=== PATIENT | female | born 1995 | race African-American/Black ===

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

== ENCOUNTER 2017-04-22 07:58 | Emergency (ER) | payer MEDICAID, OTHER ==
--- NOTE | 2017-04-22 09:04 | ER Document Report ---
ED ENT - General Chief Complaint: Ear Pain Stated Complaint: EAR PAIN Time Seen by Provider: 04/22/17 09:03 Mode of Arrival: Ambulatory Information source: Patient TRAVEL OUTSIDE OF THE [place] IN LAST 30 DAYS: No - HPI Onset: Other - 2 DAYS - Related Data Allergies/Adverse Reactions: No Known Allergies Allergy (Verified 04/22/17 08:19) Past Medical History - Social History Smoking Status: Never Smoker Chew tobacco use (# tins/day): No Frequency of alcohol use: Occasional Drug Abuse: None Family History: Reviewed & Not Pertinent Patient has suicidal ideation: No Patient has homicidal ideation: No Renal/ Medical History: Denies: Hx Peritoneal Dialysis - Immunizations Immunizations up to date: Yes Hx Diphtheria, Pertussis, Tetanus Vaccination: Yes Physical Exam - Vital signs Vitals: Temp Pulse Resp BP Pulse Ox 99.1 F 87 16 134/75 H 99 04/22/17 08:19 04/22/17 08:19 04/22/17 08:19 04/22/17 08:19 04/22/17 08:19 Interpretation: Normal. No: Tachycardic, Tachypneic, Febrile Course - Vital Signs Vital signs: Temp Pulse Resp BP Pulse Ox 99.1 F 87 16 134/75 H 99 04/22/17 08:19 04/22/17 08:19 04/22/17 08:19 04/22/17 08:19 04/22/17 08:19 Discharge - Discharge Clinical Impression: Otitis media Qualifiers: Otitis media type: suppurative Chronicity: acute Laterality: bilateral Recurrence: not specified as recurrent Spontaneous tympanic membrane rupture: without spontaneous rupture Qualified Code(s): H66.003 - Acute suppurative otitis media without spontaneous rupture of ear drum, bilateral Otitis externa Qualifiers: Otitis externa type: unspecified type Chronicity: acute Laterality: right Qualified Code(s): H60.501 - Unspecified acute noninfective otitis externa, right ear Condition: Stable Disposition: HOME, SELF-CARE Instructions: Otitis Externa ([facility]), Oral Narcotic Medication ([facility]), Use of Ear Drops ([facility]), Otitis Media ([facility]), Augmentin ([facility]) Additional Instructions: MEDS DIRECTED. FOLLOW UP IF NOT IMPROVING BY MONDAY, . Prescriptions: Hydrocodone/Acetaminophen [[place] 5-325 mg Tablet] 1 tab PO Q4HP PRN #14 tablet PRN Reason: For Pain Amox Tr/Potassium Clavulanate [Augmentin 500-125 Tablet] 1 tab PO Q8 #30 tablet Neomy Sulf/Polymyx B Sulf/Hc [Cortisporin Otic Susp] 1 drop BTH_EAR Q4 #1 bottle Referrals: LINDSAY LUCIANO, TILE MASON-C [Primary Care Provider] - Follow up as needed
[2017-04-22 09:56] VITALS: BP 125/72
== END 2017-04-22 09:50 | disposition home or self-care (01) ==
LOC: ER 07:58
DX: H66.003 Acute suppurative otitis media without spontaneous rupture of ear drum, bilateral (principal); H60.501 Unspecified acute noninfective otitis externa, right ear
CPT/HCPCS: 99282

== ENCOUNTER 2020-03-02 13:50 | Emergency (ER) | payer OTHER, MEDICAID ==
[2020-03-02 14:13] VITALS: BP 134/79
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
[2020-03-02 16:03] LABS: APPEARANCE,URINE CLEAR; BILIRUBIN,URINE NEGATIVE (NEGATIVE); COLOR,URINE YELLOW; GLUCOSE, URINE NEGATIVE (NEGATIVE); KETONES,URINE NEGATIVE (NEGATIVE); LEUKOCYTE ESTERASE,URINE NEGATIVE (NEGATIVE); NITRITE,URINE NEGATIVE (NEGATIVE); PROTEIN,URINE NEGATIVE (NEGATIVE); URINE SPECIFIC GRAVITY 1.019; UROBILINOGEN,URINE NEGATIVE mg/dL (<2.0)
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
== END 2020-03-02 19:00 | disposition left against medical advice (07) ==
LOC: ER 13:50
DX: R51.9 Headache, unspecified (principal); M54.2 Cervicalgia; M25.519 Pain in unspecified shoulder; M54.9 Dorsalgia, unspecified; V49.40XA Driver injured in collision with unspecified motor vehicles in traffic accident, initial encounter; F17.210 Nicotine dependence, cigarettes, uncomplicated; Z53.20 Procedure and treatment not carried out because of patient's decision for unspecified reasons
CPT/HCPCS: 70450; 72070; 72110; 72125; 81001; 81025; 99281